=== PATIENT | female | born 1995 | race Caucasian/White ===

== ENCOUNTER 2017-03-02 06:29 | Inpatient (IN) | payer OTHER ==
[2017-03-02] MEDS: Lactated Ringers 1,000 ML IV SCH ×3 (07:30→09:13)
[2017-03-02] MEDS ORDERED: Carboprost Tromethamine 250 MCG/1 ML Amp IM PRN (08:23)
[2017-03-02] MEDS ORDERED: Methylergonovine 0.2 MG/1 ML Amp IM PRN (08:23)
[2017-03-02] MEDS ORDERED: Misoprostol 400 MCG (4 X 100 MCG TAB) RECTAL PRN (08:23)
[2017-03-02] MEDS ORDERED: Lactated Ringers 500 ML IV ONE (08:23)
[2017-03-02] MEDS ORDERED: Lidocaine 1% 30 ML SDV INJECT PRN ×2 (08:23→09:18)
[2017-03-02] MEDS ORDERED: Ondansetron 4 MG/2 ML SDV IV PRN (08:23)
[2017-03-02] MEDS ORDERED: Acetaminophen 325 MG Tab PO PRN ×2 (08:23→13:51)
[2017-03-02] MEDS ORDERED: Sodium Chloride 0.9% 10 ML Syringe FLUSH PRN ×2 (08:23→13:51)
[2017-03-02] MEDS ORDERED: Oxytocin/Normal Saline 30 UNIT/500 ML BAG IV SCH (08:30)
[2017-03-02] MEDS ORDERED: fentaNYL 100 MCG/2 ML SDV ONE (08:47)
--- NOTE | 2017-03-02 12:38 | PCM.PRNOTE ---
- Free Text/Narrative Note: PT is here with a term complaining of severe discomfort from contractions. Pt is requesting an intrathecal (IT) injection for pain control. Upon entering the room, verbal and written consent was obtained. All pertinent questions were asked and answered. Pt is aware of risks and benefits to procedure. Pt was placed into a sitting position. Landmarks were identified and the L3/L4 interspace was marked. Back was prepped with betadine x3 swabs. A sterile, fenistrated drape was applied. Excess betadine was removed. Using a 2% lidocaine solution, a local skin wheel was injected subq at the L3/L4 interspace. Using a 24 gauge pencan needle (4 inch), needle was advanced until pop felt and positive CSF in needle on first attempt. I injected 20 mcg of Fentanly, 10 mcg of sufenta, and 9 mg of 0.75% bupivicaine into the L3/L4 interspace. Needle was removed. Drape next. Left in sitting position for 2 minutes then placed onto a left lateral lying position. VSS remained stable. Pt was placed on supplemental O2 as once she became comfortable, her SpO2 dropped to 90%. BP normal. tracing normal. Pt denies itching, appreciates the pain control but does not like numb feet. Will continue to monitor for complications.
[2017-03-02] MEDS ORDERED: Simethicone 80 MG Tab.Chew PO PRN (13:51)
[2017-03-02] MEDS ORDERED: Benzocaine/Menthol 20%-0.5% Spray 56 GM Canister TOP PRN (13:51)
--- NOTE | 2017-03-02 15:08 | PCM.DEL ---
<YoelTimo - Last Filed: 03/02/17 15:02> L & D Note - General Info Date of Service: 03/02/17 Mother's Due Date: 02/28/17 - Delivery Note Labor: Spontaneous Delivery Outcome: Livebirth Infant Delivery Method: Spontaneous Vaginal Delivery-Single Infant Delivery Mode: Spontaneous Presentation: Left Occiput Anterior (CHELSIE) Nuchal Cord: None Prep: Povidone-Iodine (Betadine Anesthesia Type: Intrathecal Amniotic Fluid Description: Clear Laceration: Periurethral Placenta: Intact, Spontaneous Cord: 3 Vessels Estimated Blood Loss: 150 Vanderwagen: Bulb Syringe Provider: Perlita Salazar Score 1 min: 8 Score 5 min: 9 Second Stage Interventions: Reports: Second Nurse Assessed Progress of Descent, Second Nurse Reviewed Contraction Pattern, Second Nurse Reviewed Heart Tones, Encouragement Given, Laboring Down, Pushing Effectively Delivery Comments (Free Text/Narrative):: Eden presented to L and D at 6:40am and was 3cm with clear SROM FHR was reassuring in 140s Patient was roomed and interathecal was requested and given The patient rested and progressed to complete in just under 3 hrs Patient pushed well and decent progressed quickly Patient delivered at 12:07 Completed vaginal delivery with Timo Diallo, MS4 OA/CHELSIE, anterior/R hand prolapsed to chest with anterior shoulder delivery delayed Thick 3VC doubly clammed and cut, and baby placed on mom after Dr. Salazar performed a quick exam Thick 3VC noted and cord blood sample obtained Cord avulsed with gentle pressure/traction Placenta delivered without issue EBL 150 ml - General Info Date of Service: 03/02/17 Functional Status: Reports: Pain Controlled, Tolerating Diet, Ambulating, Urinating - Review of Systems General: Reports: No Symptoms HEENT: Reports: No Symptoms Pulmonary: Reports: No Symptoms Cardiovascular: Reports: No Symptoms Gastrointestinal: Reports: No Symptoms Genitourinary: Reports: Burning, Pain (due to laceration) Musculoskeletal: Reports: No Symptoms Skin: Reports: No Symptoms Neurological: Reports: No Symptoms Psychiatric: Reports: No Symptoms - Patient Data Vitals - Most Recent: Last Vital Signs Temp 99.1 F 03/02/17 07:40 Pulse 79 03/02/17 11:45 Resp 16 03/02/17 06:40 BP 117/64 03/02/17 11:45 Pulse Ox Weight - Most Recent: 188 lb I&O - Last 24 Hours: Intake & Output 03/02/17 03/02/17 03/02/17 06:59 14:59 22:59 Output Total 350 800 Balance -350 -800 Lab Results Last 24 Hours: Laboratory Results - last 24 hr 03/02/17 Range/Units 08:30 WBC 17.2 H (5.0-10.0) 10^3/uL RBC 3.84 L (4.2-5.4) 10^6/uL Hgb 10.9 L (12.0-16.0) g/dL Hct 33.7 L (37.0-47.0) % MCV 87.8 (80-100) fL MCH 28.4 (27.0-34.0) pg MCHC 32.3 L (33.0-35.0) g/dL Plt Count 224 (150-450) 10^3/uL Med Orders - Current: Current Medications Acetaminophen (Tylenol) 650 mg PO Q4H PRN PRN Reason: Pain (Mild 1-3) and fever Acetaminophen (Tylenol) 650 mg PO Q6H PRN PRN Reason: mild pain or fever Benzocaine/Menthol (Dermoplast Pain Relief [place]) 0 gm TOP Q4H PRN PRN Reason: Perineal comfort measures Last Admin: 03/02/17 14:44 Dose: 1 applic Carboprost Tromethamine (Hemabate Ds) 250 mcg IM ASDIRECTED PRN PRN Reason: HEMORRHAGE Docusate Sodium (Colace) 100 mg PO BID PRN PRN Reason: Constipation Lactated Ringer's (Ringers, Lactated) 1,000 mls @ 125 mls/hr IV ASDIRECTED PAULETTE Last Admin: 03/02/17 09:13 Dose: 125 mls/hr Oxytocin/Sodium Chloride (Pitocin In Ns 30 Unit/500 Ml) 30 unit in 500 mls @ 2 mls/hr IV TITRATE PAULETTE; 2 MUNITS/MIN PRN Reason: Protocol Last Titration: 03/02/17 14:00 Dose: 50 munits/min, 50 mls/hr Ibuprofen (Motrin) 800 mg PO Q8H PRN PRN Reason: Mild Pain or Fever Lidocaine HCl (Xylocaine-Mpf 1%) 30 ml INJECT ASDIRECTED PRN PRN Reason: Perineal Repair Methylergonovine Maleate (Methergine) 0.2 mg IM ASDIRECTED PRN PRN Reason: Hemorrhage Misoprostol (Cytotec) 800 mcg RECTAL ASDIRECTED PRN PRN Reason: Hemorrhage Ondansetron HCl (Zofran) 4 mg IV Q4H PRN PRN Reason: Nausea/Vomiting Last Admin: 03/02/17 08:39 Dose: 4 mg Prenat Multivit/[place]/Iron/Folic Ac ( Plus Iron) 1 each PO DAILY PAULETTE Simethicone (Simethicone) 80 mg PO Q4H PRN PRN Reason: Gas Sodium Chloride (Saline Flush) 10 ml FLUSH ASDIRECTED PRN PRN Reason: Keep Vein Open Sodium Chloride (Saline Flush) 10 ml FLUSH ASDIRECTED PRN PRN Reason: Keep Vein Open Discontinued Medications Fentanyl (Sublimaze) Confirm Administered Dose 100 mcg .ROUTE .STK-MED ONE Stop: 03/02/17 08:48 Last Admin: 03/02/17 11:11 Dose: Not Given Lactated Ringer's (Ringers, Lactated) 500 mls @ 999 mls/hr IV .BOLUS ONE Stop: 03/02/17 08:53 Last Admin: 03/02/17 11:10 Dose: Not Given Lidocaine HCl (Xylocaine-Mpf 1%) 10 ml INJECT ASDIRECTED PRN PRN Reason: Perineal Repair Sufentanil Citrate (Sufenta) Confirm Administered Dose 50 mcg .ROUTE .STK-MED ONE Stop: 03/02/17 08:48 Last Admin: 03/02/17 11:11 Dose: Not Given - Exam General: Alert, Oriented HEENT: Pupils Reactive, Mucous Membr. Moist/[place] Neck: Trachea Midline Lungs: Normal Respiratory Effort Cardiovascular: Regular Rate GI/Abdominal Exam: Soft, No Distention (Female) Exam: Enlarged Uterus Back Exam: Full Range of Motion Extremities: Normal Inspection, Non-Tender Skin: Warm, Dry, Intact Neurological: No New Focal Deficit Psy/Mental Status: Alert, Normal Affect, Normal Mood - Problem List & Annotations (1) SNOMED Code(s): 10860465 Code(s): Z34.90 - ENCNTR FOR SUPRVSN OF NORMAL , UNSP, UNSP TRIMESTER Status: Acute Current Visit: Yes QualifierTitle: Weeks of gestation: 40 weeks Qualified Code(s): Z3A.40 - 40 weeks gestation of (2) Vaginal delivery SNOMED Code(s): 605874542 Code(s): O80 - ENCOUNTER FOR FULL-TERM UNCOMPLICATED DELIVERY Status: Acute Current Visit: Yes (3) Type O blood, Rh positive SNOMED Code(s): 014124101 Code(s): Z67.40 - TYPE O BLOOD, RH POSITIVE Status: Acute Current Visit: Yes (4) Rubella non-immune status, antepartum SNOMED Code(s): 127582543 Code(s): O99.89 - OTH DISEASES AND CONDITIONS COMPL PREG/CHLDBRTH; Z28.3 - UNDERIMMUNIZATION STATUS Status: Acute Current Visit: Yes (5) Immune to varicella SNOMED Code(s): 779281447 Code(s): Z78.9 - OTHER SPECIFIED HEALTH STATUS Status: Acute Current Visit: Yes - Problem List Review Problem List Initiated/Reviewed/Updated: Yes - My Orders Last 24 Hours: My Active Orders 03/02/17 08:23 Patient Status [ADT] Routine Communication Order [RC] ASDIRECTED Notify Provider Vital Signs OB [RC] ASDIRECTED Notify Provider [RC] PRN Up ad Bharti [RC] ASDIRECTED Acetaminophen [Tylenol] 650 mg PO Q4H PRN Carboprost Tromethamine [Hemabate DS] 250 mcg IM ASDIRECTED PRN Methylergonovine [Methergine] 0.2 mg IM ASDIRECTED PRN Misoprostol [Cytotec] 800 mcg RECTAL ASDIRECTED PRN Ondansetron [Zofran] 4 mg IV Q4H PRN Sodium Chloride 0.9% [Saline Flush] 10 ml FLUSH ASDIRECTED PRN Saline Lock Insert [OM.PC] Routine Resuscitation Status Routine 03/02/17 08:26 Consult to Business Broker [CONS] Routine 03/02/17 08:30 Lactated Ringers [Ringers, Lactated] 1,000 ml IV ASDIRECTED Oxytocin/Normal Saline [Pitocin in NS 30 UNIT/500 ML] 30 unit in 500 ml IV TITRATE 03/02/17 09:18 Lidocaine 1% [Xylocaine-MPF 1%] 30 ml INJECT ASDIRECTED PRN 03/02/17 13:51 Acetaminophen [Tylenol] 650 mg PO Q6H PRN Benzocaine/Menthol [Dermoplast Pain Relief [place]] See Dose Instructions TOP Q4H PRN Docusate Sodium [Colace] 100 mg PO BID PRN Ibuprofen [Motrin] 800 mg PO Q8H PRN Simethicone 80 mg PO Q4H PRN Sodium Chloride 0.9% [Saline Flush] 10 ml FLUSH ASDIRECTED PRN 03/02/17 14:00 Notify Provider Vital Signs OB [RC] ASDIRECTED Up ad Bharti [RC] ASDIRECTED Assess Lochia [WOMSER] Per Unit Routine Assess Uterine Involution [WOMSER] Per Unit Routine Breast Pump [WOMSER] Per Unit Routine Ice Therapy [OM.PC] Per Unit Routine Perineal Care [OM.PC] Per Unit Routine Saline Lock Insert [OM.PC] Urgent Sitz Bath [OM.PC] Per Unit Routine 03/02/17 14:01 Vital Signs [RC] PFP 03/02/17 Lunch Clear Liquid Diet [DIET] 03/03/17 05:11 CBC W/O DIFF,HEMOGRAM [HEME] AM 03/03/17 09:00 Vit with Ca/FA/Iron [ Plus Iron] 1 each PO DAILY - Assessment Assessment:: 21 yo female who is G1 now P1001 40wk2d per 19wk on LMP and verified by U/S delivery --- precipitous on 03/02/18 @ 12:07 SGA male 8 & 9 7lb--3180g Blood type 0+ Rubella NON-immune GBS negative Denies drug, alcohol and tobacco usage gestational anemia -- 10.9 Hgb - Plan Plan:: routine and post-op care. check CBC in a.m. continue to monitor BP, etc. for pre-eclampsia All questions answered and family updated. <Perlita Salazar - Last Filed: 03/03/17 07:35> - Patient Data Vitals - Most Recent: Last Vital Signs Temp 98.2 F 03/02/17 20:00 Pulse 75 03/02/17 20:00 Resp 16 03/02/17 13:50 BP 112/68 03/02/17 20:00 Pulse Ox I&O - Last 24 Hours: Intake & Output 03/02/17 03/03/17 03/03/17 22:59 06:59 14:59 Intake Total 3500 Output Total 800 Balance 2700 Lab Results Last 24 Hours: Laboratory Results - last 24 hr 03/02/17 03/03/17 Range/Units 08:30 06:35 WBC 17.2 H 15.3 H (5.0-10.0) 10^3/uL RBC 3.84 L 3.44 L (4.2-5.4) 10^6/uL Hgb 10.9 L 9.9 L (12.0-16.0) g/dL Hct 33.7 L 31.0 L (37.0-47.0) % MCV 87.8 90.1 (80-100) fL MCH 28.4 28.8 (27.0-34.0) pg MCHC 32.3 L 31.9 L (33.0-35.0) g/dL Plt Count 224 191 (150-450) 10^3/uL Med Orders - Current: Current Medications Acetaminophen (Tylenol) 650 mg PO Q4H PRN PRN Reason: Pain (Mild 1-3) and fever Acetaminophen (Tylenol) 650 mg PO Q6H PRN PRN Reason: mild pain or fever Benzocaine/Menthol (Dermoplast Pain Relief [place]) 0 gm TOP Q4H PRN PRN Reason: Perineal comfort measures Last Admin: 03/02/17 14:44 Dose: 1 applic Carboprost Tromethamine (Hemabate Ds) 250 mcg IM ASDIRECTED PRN PRN Reason: HEMORRHAGE Docusate Sodium (Colace) 100 mg PO BID PRN PRN Reason: Constipation Lactated Ringer's (Ringers, Lactated) 1,000 mls @ 125 mls/hr IV ASDIRECTED PAULETTE Last Admin: 03/02/17 09:13 Dose: 125 mls/hr Oxytocin/Sodium Chloride (Pitocin In Ns 30 Unit/500 Ml) 30 unit in 500 mls @ 2 mls/hr IV TITRATE PAULETTE; 2 MUNITS/MIN PRN Reason: Protocol Last Titration: 03/02/17 15:27 Dose: 0 munits/min, 0 mls/hr Ibuprofen (Motrin) 800 mg PO Q8H PRN PRN Reason: Mild Pain or Fever Last Admin: 03/03/17 04:09 Dose: 800 mg Lidocaine HCl (Xylocaine-Mpf 1%) 30 ml INJECT ASDIRECTED PRN PRN Reason: Perineal Repair Methylergonovine Maleate (Methergine) 0.2 mg IM ASDIRECTED PRN PRN Reason: Hemorrhage Misoprostol (Cytotec) 800 mcg RECTAL ASDIRECTED PRN PRN Reason: Hemorrhage Ondansetron HCl (Zofran) 4 mg IV Q4H PRN PRN Reason: Nausea/Vomiting Last Admin: 03/02/17 08:39 Dose: 4 mg Prenat Multivit/[place]/Iron/Folic Ac ( Plus Iron) 1 each PO DAILY PAULETTE Simethicone (Simethicone) 80 mg PO Q4H PRN PRN Reason: Gas Sodium Chloride (Saline Flush) 10 ml FLUSH ASDIRECTED PRN PRN Reason: Keep Vein Open Sodium Chloride (Saline Flush) 10 ml FLUSH ASDIRECTED PRN PRN Reason: Keep Vein Open Discontinued Medications Fentanyl (Sublimaze) Confirm Administered Dose 100 mcg .ROUTE .Fididel-Cenzic ONE Stop: 03/02/17 08:48 Last Admin: 03/02/17 11:11 Dose: Not Given Lactated Ringer's (Ringers, Lactated) 500 mls @ 999 mls/hr IV .BOLUS ONE Stop: 03/02/17 08:53 Last Admin: 03/02/17 11:10 Dose: Not Given Lidocaine HCl (Xylocaine-Mpf 1%) 10 ml INJECT ASDIRECTED PRN PRN Reason: Perineal Repair Sufentanil Citrate (Sufenta) Confirm Administered Dose 50 mcg .ROUTE .STK-MED ONE Stop: 03/02/17 08:48 Last Admin: 03/02/17 11:11 Dose: Not Given - Problem List Review Problem List Initiated/Reviewed/Updated: Yes - Plan Plan:: REVIEWED ABOVE NOTE. WAS PRESENT AT DELIVERY AND AGREE WITH DOCUMENTATION. PERLITA SALAZAR MD 03-03-17
--- NOTE | 2017-03-02 17:18 | PCM.LDHP ---
<Timo Diallo - Last Filed: 03/02/17 17:13> L&D History of Present Illness - General Date of Service: 03/02/17 Admit Problem/Dx: Patient Status Order with Admit Dx/Problem 03/02/17 08:23 Patient Status [ADT] Routine Admission Diagnosis/Problem Admission Diagnosis/Problem Labor established Source of Information: Patient History Limitations: Reports: No Limitations - History of Present Illness Location, : Reports: Uterus Quality: Reports: Ache Severity: Mild - Related Data Allergies/Adverse Reactions: Allergies Allergy/AdvReac Type Severity Reaction Status Date / Time No Known Allergies Allergy Verified 03/03/17 07:37 Home Medications: Home Meds Ascorbic Acid [Vitamin C] 1 tab PO DAILY 02/28/17 [History] Ferrous Sulfate 325 mg PO BIDMEALS 02/28/17 [History] Vit with Ca/FA/Iron [ Plus Iron] 1 tab PO DAILY 02/28/17 [ History] Past Medical History HEENT History: Reports: None Cardiovascular History: Reports: None Respiratory History: Reports: None Gastrointestinal History: Reports: None Genitourinary History: Reports: None RESIDENT CARE MANAGER RN History: Reports: : 1 Para: 0 LMP (Approximate): Other OB/BYN History: GBS neg, rubella immune, O pos blood type Musculoskeletal History: Reports: None Neurological History: Reports: None Psychiatric History: Reports: None Endocrine/Metabolic History: Reports: None Hematologic History: Reports: Anemia Immunologic History: Reports: None Oncologic (Cancer) History: Reports: None Dermatologic History: Reports: None - Infectious Disease History Infectious Disease History: Reports: None - Past Surgical History Head Surgeries/Procedures: Reports: None Social & Family History - Family History Family Medical History: Noncontributory Cardiac: Reports: Arrhythmia, Other (See Below) (Heart Disease) Respiratory: Reports: COPD Neurological: Reports: CVA - Tobacco Use Smoking Status *Q: Never Smoker - Caffeine Use Caffeine Use: Reports: Soda - Alcohol Use Alcohol Use History: No - Recreational Drug Use Recreational Drug Use: No - Living Situation & Occupation Living situation: Reports: Occupation: Unemployed Social History Comment: Living in [facility] with (Miguel Nayak) and dog. H&P Review of Systems - Review of Systems: General: Reports: No Symptoms HEENT: Reports: No Symptoms Pulmonary: Reports: No Symptoms Cardiovascular: Reports: No Symptoms Gastrointestinal: Reports: No Symptoms Musculoskeletal: Reports: No Symptoms Skin: Reports: No Symptoms Neurological: Reports: No Symptoms Hematologic/Lymphatic: Reports: No Symptoms, Anemia L&D Exam - Exam Exam: See Below - Vital Signs Vital Signs: Last Vital Signs Temp 98.6 F 03/02/17 13:50 Pulse 65 03/02/17 13:50 Resp 16 03/02/17 13:50 BP 117/55 L 03/02/17 13:50 Pulse Ox Weight: 188 lb - OB Specific Contraction Duration (sec): 70-120 Contraction Frequency (min): 2-2.5 Contraction Intensity: Strong Movement: Active Heart Tones: Present Heart Tones per Min: 140 Heart Rate (FHR) Variability: Moderate (6-25 bmp) Presentation: Left Occiput Anterior (CHELSIE) - Exam General: Alert, Oriented HEENT: Conjunctiva Clear, Hearing Intact, Pupils Reactive Neck: Trachea Midline Lungs: Clear to Auscultation, Normal Respiratory Effort Cardiovascular: Regular Rate, Regular Rhythm GI/Abdominal Exam: Other () Genitourinary: Normal external exam Back Exam: Full Range of Motion Extremities: Normal Inspection, Normal Range of Motion, No Pedal Edema Skin: Warm, Dry, Intact Neurological: Cranial Nerves Intact Psychiatric: Alert, Normal Affect, Normal Mood - Patient Data Lab Results Last 24 hrs: Laboratory Results - last 24 hr 03/02/17 Range/Units 08:30 WBC 17.2 H (5.0-10.0) 10^3/uL RBC 3.84 L (4.2-5.4) 10^6/uL Hgb 10.9 L (12.0-16.0) g/dL Hct 33.7 L (37.0-47.0) % MCV 87.8 (80-100) fL MCH 28.4 (27.0-34.0) pg MCHC 32.3 L (33.0-35.0) g/dL Plt Count 224 (150-450) 10^3/uL Result Diagrams: 03/02/17 08:30 - Problem List (1) SNOMED Code(s): 49874121 ICD Code: Z34.90 - ENCNTR FOR SUPRVSN OF NORMAL , UNSP, UNSP TRIMESTER Status: Acute Current Visit: Yes QualifierTitle: Weeks of gestation: 40 weeks Qualified Code(s): Z3A.40 - 40 weeks gestation of (2) Vaginal delivery SNOMED Code(s): 311333977 ICD Code: O80 - ENCOUNTER FOR FULL-TERM UNCOMPLICATED DELIVERY Status: Acute Current Visit: Yes (3) Type O blood, Rh positive SNOMED Code(s): 058950755 ICD Code: Z67.40 - TYPE O BLOOD, RH POSITIVE Status: Acute Current Visit : Yes (4) Rubella non-immune status, antepartum SNOMED Code(s): 391037537 ICD Code: O99.89 - OTH DISEASES AND CONDITIONS COMPL PREG/CHLDBRTH; Z28.3 - UNDERIMMUNIZATION STATUS Status: Acute Current Visit: Yes (5) Immune to varicella SNOMED Code(s): 703356913 ICD Code: Z78.9 - OTHER SPECIFIED HEALTH STATUS Status: Acute Current Visit: Yes Problem List Initiated/Reviewed/Updated: Yes Orders Last 24hrs: Active Orders 24 hr Category Date Time Status Patient Status [ADT] Routine ADT 03/02/17 08:23 Active Communication Order [RC] ASDIRECTED Care 03/02/17 08:23 Active Notify Provider Vital Signs OB [RC] ASDIRECTED Care 03/02/17 08:23 Active Notify Provider Vital Signs OB [RC] ASDIRECTED Care 03/02/17 14:00 Active Notify Provider [RC] PRN Care 03/02/17 08:23 Active Up ad Bharti [RC] ASDIRECTED Care 03/02/17 08:23 Active Up ad Bharti [RC] ASDIRECTED Care 03/02/17 14:00 Active Vital Signs [RC] PFP Care 03/02/17 14:01 Active Consult to Cloth Shrinking Machine Operator [CONS] Routine Cons 03/02/17 08:26 Active Clear Liquid Diet [DIET] Diet 03/02/17 Lunch Active CBC W/O DIFF,HEMOGRAM [HEME] AM Lab 03/03/17 05:11 Ordered Acetaminophen [Tylenol] Med 03/02/17 08:23 Active 650 mg PO Q4H PRN Acetaminophen [Tylenol] Med 03/02/17 13:51 Active 650 mg PO Q6H PRN Benzocaine/Menthol [Dermoplast Pain Relief [place]] Med 03/02/17 13:51 Active See Dose Instructions TOP Q4H PRN Carboprost Tromethamine [Hemabate DS] Med 03/02/17 08:23 Active 250 mcg IM ASDIRECTED PRN Docusate Sodium [Colace] Med 03/02/17 13:51 Active 100 mg PO BID PRN Ibuprofen [Motrin] Med 03/02/17 13:51 Active 800 mg PO Q8H PRN Lactated Ringers [Ringers, Lactated] 1,000 ml Med 03/02/17 08:30 Active IV ASDIRECTED Lidocaine 1% [Xylocaine-MPF 1%] Med 03/02/17 09:18 Active 30 ml INJECT ASDIRECTED PRN Methylergonovine [Methergine] Med 03/02/17 08:23 Active 0.2 mg IM ASDIRECTED PRN Misoprostol [Cytotec] Med 03/02/17 08:23 Active 800 mcg RECTAL ASDIRECTED PRN Ondansetron [Zofran] Med 03/02/17 08:23 Active 4 mg IV Q4H PRN Oxytocin/Normal Saline [Pitocin in NS 30 UNIT/500 ML] Med 03/02/17 08:30 Active 30 unit in 500 ml IV TITRATE Vit with Ca/FA/Iron [ Plus Iron] Med 03/03/17 09:00 Active 1 each PO DAILY Simethicone Med 03/02/17 13:51 Active 80 mg PO Q4H PRN Sodium Chloride 0.9% [Saline Flush] Med 03/02/17 08:23 Active 10 ml FLUSH ASDIRECTED PRN Sodium Chloride 0.9% [Saline Flush] Med 03/02/17 13:51 Active 10 ml FLUSH ASDIRECTED PRN Assess Lochia [WOMSER] Per Unit Routine Oth 03/02/17 14:00 Ordered Assess Uterine Involution [WOMSER] Per Unit Routine Oth 03/02/17 14:00 Ordered Breast Pump [WOMSER] Per Unit Routine Oth 03/02/17 14:00 Ordered Ice Therapy [OM.PC] Per Unit Routine Oth 03/02/17 14:00 Ordered Perineal Care [OM.PC] Per Unit Routine Oth 03/02/17 14:00 Ordered Saline Lock Insert [OM.PC] Routine Oth 03/02/17 08:23 Ordered Saline Lock Insert [OM.PC] Urgent Oth 03/02/17 14:00 Ordered Sitz Bath [OM.PC] Per Unit Routine Oth 03/02/17 14:00 Ordered Resuscitation Status Routine Resus Stat 03/02/17 08:23 Ordered Medication Orders Acetaminophen (Tylenol) 650 mg PO Q4H PRN PRN Reason: Pain (Mild 1-3) and fever Acetaminophen (Tylenol) 650 mg PO Q6H PRN PRN Reason: mild pain or fever Benzocaine/Menthol (Dermoplast Pain Relief [place]) 0 gm TOP Q4H PRN PRN Reason: Perineal comfort measures Last Admin: 03/02/17 14:44 Dose: 1 applic Carboprost Tromethamine (Hemabate Ds) 250 mcg IM ASDIRECTED PRN PRN Reason: HEMORRHAGE Docusate Sodium (Colace) 100 mg PO BID PRN PRN Reason: Constipation Lactated Ringer's (Ringers, Lactated) 1,000 mls @ 125 mls/hr IV ASDIRECTED PAULETTE Last Admin: 03/02/17 09:13 Dose: 125 mls/hr Infusion: 03/02/17 09:13 Dose: 125 mls/hr Admin: 03/02/17 08:41 Dose: 125 mls/hr Infusion: 03/02/17 08:41 Dose: 125 mls/hr Admin: 03/02/17 07:30 Dose: 125 mls/hr Oxytocin/Sodium Chloride (Pitocin In Ns 30 Unit/500 Ml) 30 unit in 500 mls @ 2 mls/hr IV TITRATE PAULETTE; 2 MUNITS/MIN PRN Reason: Protocol Last Titration: 03/02/17 15:27 Dose: 0 munits/min, 0 mls/hr Titration: 03/02/17 14:00 Dose: 50 munits/min, 50 mls/hr Titration: 03/02/17 13:09 Dose: 125 munits/min, 125 mls/hr Titration: 03/02/17 12:28 Dose: 250 munits/min, 250 mls/hr Admin: 03/02/17 12:13 Dose: 500 munits/min, 500 mls/hr Ibuprofen (Motrin) 800 mg PO Q8H PRN PRN Reason: Mild Pain or Fever Lidocaine HCl (Xylocaine-Mpf 1%) 30 ml INJECT ASDIRECTED PRN PRN Reason: Perineal Repair Methylergonovine Maleate (Methergine) 0.2 mg IM ASDIRECTED PRN PRN Reason: Hemorrhage Misoprostol (Cytotec) 800 mcg RECTAL ASDIRECTED PRN PRN Reason: Hemorrhage Ondansetron HCl (Zofran) 4 mg IV Q4H PRN PRN Reason: Nausea/Vomiting Last Admin: 03/02/17 08:39 Dose: 4 mg Prenat Multivit/[place]/Iron/Folic Ac ( Plus Iron) 1 each PO DAILY PAULETTE Simethicone (Simethicone) 80 mg PO Q4H PRN PRN Reason: Gas Sodium Chloride (Saline Flush) 10 ml FLUSH ASDIRECTED PRN PRN Reason: Keep Vein Open Sodium Chloride (Saline Flush) 10 ml FLUSH ASDIRECTED PRN PRN Reason: Keep Vein Open Assessment/Plan Comment:: Assessment: 40 week gestation Advanced cervical dilation Blood type O+ GBS negative Rubella NON-immune Anemia, mild Plan: Admit to Labor and delivery as discussed. Will use pitocin augmentation if needed. Anticipate vaginal delivery later today. All questions answered. Further management pending her course in labor. <Perlita Navarrete M - Last Filed: 03/03/17 07:37> L&D History of Present Illness - General Date of Service: 03/02/17 Admit Problem/Dx: Patient Status Order with Admit Dx/Problem 03/02/17 08:23 Patient Status [ADT] Routine Admission Diagnosis/Problem Admission Diagnosis/Problem Labor established H&P Review of Systems - Review of Systems: Review Of Systems: See Below L&D Exam - Exam Exam: See Below - Vital Signs Vital Signs: Last Vital Signs Temp 98.2 F 03/02/17 20:00 Pulse 75 03/02/17 20:00 Resp 16 03/02/17 13:50 BP 112/68 03/02/17 20:00 Pulse Ox - Patient Data Lab Results Last 24 hrs: Laboratory Results - last 24 hr 03/02/17 03/03/17 Range/Units 08:30 06:35 WBC 17.2 H 15.3 H (5.0-10.0) 10^3/uL RBC 3.84 L 3.44 L (4.2-5.4) 10^6/uL Hgb 10.9 L 9.9 L (12.0-16.0) g/dL Hct 33.7 L 31.0 L (37.0-47.0) % MCV 87.8 90.1 (80-100) fL MCH 28.4 28.8 (27.0-34.0) pg MCHC 32.3 L 31.9 L (33.0-35.0) g/dL Plt Count 224 191 (150-450) 10^3/uL Result Diagrams: 03/03/17 06:35 Orders Last 24hrs: Active Orders 24 hr Category Date Time Status Patient Status [ADT] Routine ADT 03/02/17 08:23 Active Notify Provider Vital Signs OB [RC] ASDIRECTED Care 03/02/17 08:23 Active Notify Provider Vital Signs OB [RC] ASDIRECTED Care 03/02/17 14:00 Active Up ad Bharti [RC] ASDIRECTED Care 03/02/17 08:23 Active Up ad Bharti [RC] ASDIRECTED Care 03/02/17 14:00 Active Vital Signs [RC] Care 03/02/17 14:01 Active Consult to Cloth Shrinking Machine Operator [CONS] Routine Cons 03/02/17 08:26 Active Regular Diet [DIET] Diet 03/03/17 Breakfast Active Acetaminophen [Tylenol] Med 03/02/17 08:23 Active 650 mg PO Q4H PRN Acetaminophen [Tylenol] Med 03/02/17 13:51 Active 650 mg PO Q6H PRN Benzocaine/Menthol [Dermoplast Pain Relief [place]] Med 03/02/17 13:51 Active See Dose Instructions TOP Q4H PRN Carboprost Tromethamine [Hemabate DS] Med 03/02/17 08:23 Active 250 mcg IM ASDIRECTED PRN Docusate Sodium [Colace] Med 03/02/17 13:51 Active 100 mg PO BID PRN Ibuprofen [Motrin] Med 03/02/17 13:51 Active 800 mg PO Q8H PRN Lactated Ringers [Ringers, Lactated] 1,000 ml Med 03/02/17 08:30 Active IV ASDIRECTED Lidocaine 1% [Xylocaine-MPF 1%] Med 03/02/17 09:18 Active 30 ml INJECT ASDIRECTED PRN Methylergonovine [Methergine] Med 03/02/17 08:23 Active 0.2 mg IM ASDIRECTED PRN Misoprostol [Cytotec] Med 03/02/17 08:23 Active 800 mcg RECTAL ASDIRECTED PRN Ondansetron [Zofran] Med 03/02/17 08:23 Active 4 mg IV Q4H PRN Oxytocin/Normal Saline [Pitocin in NS 30 UNIT/500 ML] Med 03/02/17 08:30 Active 30 unit in 500 ml IV TITRATE Vit with Ca/FA/Iron [ Plus Iron] Med 03/03/17 09:00 Active 1 each PO DAILY Simethicone Med 03/02/17 13:51 Active 80 mg PO Q4H PRN Sodium Chloride 0.9% [Saline Flush] Med 03/02/17 08:23 Active 10 ml FLUSH ASDIRECTED PRN Sodium Chloride 0.9% [Saline Flush] Med 03/02/17 13:51 Active 10 ml FLUSH ASDIRECTED PRN Assess Lochia [WOMSER] Per Unit Routine Oth 03/02/17 14:00 Ordered Assess Uterine Involution [WOMSER] Per Unit Routine Oth 03/02/17 14:00 Ordered Breast Pump [WOMSER] Per Unit Routine Oth 03/02/17 14:00 Ordered Ice Therapy [OM.PC] Per Unit Routine Oth 03/02/17 14:00 Ordered Perineal Care [OM.PC] Per Unit Routine Oth 03/02/17 14:00 Ordered Saline Lock Insert [OM.PC] Routine Oth 03/02/17 08:23 Ordered Saline Lock Insert [OM.PC] Urgent Oth 03/02/17 14:00 Ordered Sitz Bath [OM.PC] Per Unit Routine Oth 03/02/17 14:00 Ordered Resuscitation Status Routine Resus Stat 03/02/17 08:23 Ordered Medication Orders Acetaminophen (Tylenol) 650 mg PO Q4H PRN PRN Reason: Pain (Mild 1-3) and fever Acetaminophen (Tylenol) 650 mg PO Q6H PRN PRN Reason: mild pain or fever Benzocaine/Menthol (Dermoplast Pain Relief [place]) 0 gm TOP Q4H PRN PRN Reason: Perineal comfort measures Last Admin: 03/02/17 14:44 Dose: 1 applic Carboprost Tromethamine (Hemabate Ds) 250 mcg IM ASDIRECTED PRN PRN Reason: HEMORRHAGE Docusate Sodium (Colace) 100 mg PO BID PRN PRN Reason: Constipation Lactated Ringer's (Ringers, Lactated) 1,000 mls @ 125 mls/hr IV ASDIRECTED PAULETTE Last Admin: 03/02/17 09:13 Dose: 125 mls/hr Infusion: 03/02/17 09:13 Dose: 125 mls/hr Admin: 03/02/17 08:41 Dose: 125 mls/hr Infusion: 03/02/17 08:41 Dose: 125 mls/hr Admin: 03/02/17 07:30 Dose: 125 mls/hr Oxytocin/Sodium Chloride (Pitocin In Ns 30 Unit/500 Ml) 30 unit in 500 mls @ 2 mls/hr IV TITRATE PAULETTE; 2 MUNITS/MIN PRN Reason: Protocol Last Titration: 03/02/17 15:27 Dose: 0 munits/min, 0 mls/hr Titration: 03/02/17 14:00 Dose: 50 munits/min, 50 mls/hr Titration: 03/02/17 13:09 Dose: 125 munits/min, 125 mls/hr Titration: 03/02/17 12:28 Dose: 250 munits/min, 250 mls/hr Admin: 03/02/17 12:13 Dose: 500 munits/min, 500 mls/hr Ibuprofen (Motrin) 800 mg PO Q8H PRN PRN Reason: Mild Pain or Fever Last Admin: 03/03/17 04:09 Dose: 800 mg Lidocaine HCl (Xylocaine-Mpf 1%) 30 ml INJECT ASDIRECTED PRN PRN Reason: Perineal Repair Methylergonovine Maleate (Methergine) 0.2 mg IM ASDIRECTED PRN PRN Reason: Hemorrhage Misoprostol (Cytotec) 800 mcg RECTAL ASDIRECTED PRN PRN Reason: Hemorrhage Ondansetron HCl (Zofran) 4 mg IV Q4H PRN PRN Reason: Nausea/Vomiting Last Admin: 03/02/17 08:39 Dose: 4 mg Prenat Multivit/[place]/Iron/Folic Ac ( Plus Iron) 1 each PO DAILY PAULETTE Simethicone (Simethicone) 80 mg PO Q4H PRN PRN Reason: Gas Sodium Chloride (Saline Flush) 10 ml FLUSH ASDIRECTED PRN PRN Reason: Keep Vein Open Sodium Chloride (Saline Flush) 10 ml FLUSH ASDIRECTED PRN PRN Reason: Keep Vein Open
[2017-03-03] MEDS: Ibuprofen 800 MG Tab PO PRN ×3 (04:09→19:19)
--- NOTE | 2017-03-03 07:54 | PCM.SN ---
- Free Text/Narrative Note: DOS: 03-03-17 PPD#1 Doing well. Nursing. cramping quite a bit, yung with nursing. flow decreasing. eating, voiding, ambulating well. no concerns. VSS, afebrile. fundus firm. hgb 9.9, PLT 191, WBC 15.3 admit 10.9, PLT 224, WBC 17.2 Impression/Plan: continue current cares. x ray consultant to follow. Likely home tomorrow. b
[2017-03-03] MEDS: Docusate Sodium 100 MG Cap PO PRN ×2 (09:15→19:19)
[2017-03-03] MEDS: Prenatal Multivitamin with Calcium/Folic Acid/Iron Tab PO SCH (09:15)
[2017-03-04] MEDS: Ibuprofen 800 MG Tab PO PRN (04:07)
[2017-03-04] MEDS: Docusate Sodium 100 MG Cap PO PRN (08:40)
[2017-03-04] MEDS: Prenatal Multivitamin with Calcium/Folic Acid/Iron Tab PO SCH (08:40)
--- NOTE | 2017-03-04 10:07 | PCM.DCSUM1 ---
Discharge Summary - Discharge Data Discharge Date: 03/04/17 Discharge Disposition: Home, Self-Care 01 Condition: Good - Patient Summary/Data Consults: Consultations 03/02/17 08:26 Consult to Management Trainee [employer] [CONS] Routine - Discharge Plan Home Medications: Home Meds Ascorbic Acid [Vitamin C] 1 tab PO DAILY 02/28/17 [History] Ferrous Sulfate 325 mg PO BIDMEALS 02/28/17 [History] Vit with Ca/FA/Iron [ Plus Iron] 1 tab PO DAILY 02/28/17 [ History] Patient Handouts: Home Care Instructions for Mom, Iron Deficiency Anemia, Adult , Care of a Perineal Tear - Patient Data Vitals - Most Recent: Last Vital Signs Temp 98.2 F 03/03/17 19:20 Pulse 90 03/03/17 19:20 Resp 16 03/03/17 19:20 BP 116/68 03/03/17 19:20 Pulse Ox 93 L 03/03/17 19:20 Weight - Most Recent: 188 lb Med Orders - Current: Current Medications Acetaminophen (Tylenol) 650 mg PO Q4H PRN PRN Reason: Pain (Mild 1-3) and fever Last Admin: 03/04/17 04:07 Dose: 650 mg Acetaminophen (Tylenol) 650 mg PO Q6H PRN PRN Reason: mild pain or fever Last Admin: 03/03/17 22:00 Dose: 650 mg Benzocaine/Menthol (Dermoplast Pain Relief [place]) 0 gm TOP Q4H PRN PRN Reason: Perineal comfort measures Last Admin: 03/02/17 14:44 Dose: 1 applic Carboprost Tromethamine (Hemabate Ds) 250 mcg IM ASDIRECTED PRN PRN Reason: HEMORRHAGE Docusate Sodium (Colace) 100 mg PO BID PRN PRN Reason: Constipation Last Admin: 03/04/17 08:40 Dose: 100 mg Lactated Ringer's (Ringers, Lactated) 1,000 mls @ 125 mls/hr IV ASDIRECTED PAULETTE Last Admin: 03/02/17 09:13 Dose: 125 mls/hr Oxytocin/Sodium Chloride (Pitocin In Ns 30 Unit/500 Ml) 30 unit in 500 mls @ 2 mls/hr IV TITRATE PAULETTE; 2 MUNITS/MIN PRN Reason: Protocol Last Titration: 03/02/17 15:27 Dose: 0 munits/min, 0 mls/hr Ibuprofen (Motrin) 800 mg PO Q8H PRN PRN Reason: Mild Pain or Fever Last Admin: 03/04/17 04:07 Dose: 800 mg Lidocaine HCl (Xylocaine-Mpf 1%) 30 ml INJECT ASDIRECTED PRN PRN Reason: Perineal Repair Methylergonovine Maleate (Methergine) 0.2 mg IM ASDIRECTED PRN PRN Reason: Hemorrhage Misoprostol (Cytotec) 800 mcg RECTAL ASDIRECTED PRN PRN Reason: Hemorrhage Ondansetron HCl (Zofran) 4 mg IV Q4H PRN PRN Reason: Nausea/Vomiting Last Admin: 03/02/17 08:39 Dose: 4 mg Prenat Multivit/[place]/Iron/Folic Ac ( Plus Iron) 1 each PO DAILY PAULETTE Last Admin: 03/04/17 08:40 Dose: 1 each Simethicone (Simethicone) 80 mg PO Q4H PRN PRN Reason: Gas Sodium Chloride (Saline Flush) 10 ml FLUSH ASDIRECTED PRN PRN Reason: Keep Vein Open Sodium Chloride (Saline Flush) 10 ml FLUSH ASDIRECTED PRN PRN Reason: Keep Vein Open Discontinued Medications Fentanyl (Sublimaze) Confirm Administered Dose 100 mcg .ROUTE .[place] ONE Stop: 03/02/17 08:48 Last Admin: 03/02/17 11:11 Dose: Not Given Lactated Ringer's (Ringers, Lactated) 500 mls @ 999 mls/hr IV .BOLUS ONE Stop: 03/02/17 08:53 Last Admin: 03/02/17 11:10 Dose: Not Given Lidocaine HCl (Xylocaine-Mpf 1%) 10 ml INJECT ASDIRECTED PRN PRN Reason: Perineal Repair Sufentanil Citrate (Sufenta) Confirm Administered Dose 50 mcg .ROUTE .Flurry-MED ONE Stop: 03/02/17 08:48 Last Admin: 03/02/17 11:11 Dose: Not Given *Q Meaningful Use (DIS) - VTE *Q VTE Criteria *Q: - Stroke *Q Stroke Criteria *Q: - AMI *Q AMI Criteria *Q:
[2017-03-04] MEDS ORDERED: fentaNYL 100 MCG/2 ML SDV ITHECAL ONE (10:59)
[2017-03-04 11:13] VITALS: BP 122/69
== END 2017-03-04 11:00 | disposition home or self-care (01) | DRG 775 ==
LOC: DL.OBCHECK 06:29 → UNDOADMOB 07:36 → DL.OB 07:36 → INTOOBSV 12:07 → OBSVTOIN 12:07 → DL.MS 03-03 21:40
PROVIDERS: ADMIT Family Medicine; ATTEND Family Medicine
PROC: 10E0XZZ Delivery of Products of Conception, External Approach (ICD-10-PCS; principal; 2017-03-03)
PROC: 4A1HXFZ Monitoring of Products of Conception, Cardiac Rhythm, External Approach (ICD-10-PCS; 2017-03-03)
PROC: 3E0R3CZ (ICD-10-PCS; 2017-03-03)
PROC: 00HU33Z Insertion of Infusion Device into Spinal Canal, Percutaneous Approach (ICD-10-PCS; 2017-03-03)
DX: O99.02 Anemia complicating childbirth (principal); Z3A.40 40 weeks gestation of pregnancy; Z37.0 Single live birth; O71.82 Other specified trauma to perineum and vulva
CPT/HCPCS: 36415; 85027; A9270-GY; J2405; J2590; J3010; J7120

== ENCOUNTER 2018-02-08 00:51 | Inpatient (IN) | payer BC, OTHER ==
[2018-02-08] MEDS ORDERED: Bupivacaine 0.75%/D5W 2 ML Amp INJECT ONE (01:30)
[2018-02-08] MEDS ORDERED: fentaNYL 100 MCG/2 ML SDV ITHECAL ONE (01:30)
[2018-02-08] MEDS ORDERED: Lidocaine 1% 30 ML SDV INJECT PRN (05:53)
[2018-02-08] MEDS ORDERED: Methylergonovine 0.2 MG/1 ML Amp IM PRN (05:53)
[2018-02-08] MEDS ORDERED: Misoprostol 400 MCG (4 X 100 MCG TAB) RECTAL PRN ×2 (05:53→12:14)
[2018-02-08] MEDS ORDERED: Lactated Ringers 500 ML IV ONE (05:53)
[2018-02-08] MEDS ORDERED: Ondansetron 4 MG/2 ML SDV IV PRN (05:53)
[2018-02-08] MEDS ORDERED: Carboprost Tromethamine 250 MCG/1 ML Amp IM PRN (05:53)
[2018-02-08] MEDS ORDERED: Sodium Chloride 0.9% 10 ML Syringe FLUSH PRN ×2 (05:53→12:14)
[2018-02-08] MEDS ORDERED: Tranexamic Acid 1,000 MG in Sodium Chloride 0.9% 100 ML IV PRN ×2 (05:53→12:14)
[2018-02-08] MEDS ORDERED: Oxytocin/Normal Saline 30 UNIT/500 ML BAG IV SCH (06:00)
--- NOTE | 2018-02-08 07:29 | HP ---
CHIEF COMPLAINT: Onset of contractions. HISTORY OF PRESENT ILLNESS: The patient is a 22-year-old, 2, para 1-0-0 - 1, currently at 39 and 0/7 weeks of her based on dating by last menstrual period confirmed with 21-week ultrasound, who came in film sound coordinator hours with her reporting onset of contractions somewhere between 11:00 and midnight that became more regular and had been every 7 to 8 minutes when she had left her house and about every 3 to 4 minutes when arriving on Labor and Delivery. No leakage of fluid or vaginal bleeding. Initially, no symptoms of preeclampsia. Good movement. Possibly some bloody show. Otherwise, no acute concerns. After being observed in the hospital for several hours, the contractions seemed to lessen in degree but are still occurring about every 2 minutes and are more intense when she is awake, but when she was asleep, she did not notice them. Baby movement has continued to be good. She is now starting to develop a headache. Blood pressures have been slightly higher than they should be, but she has no other symptoms of preeclampsia. OBSTETRICAL HISTORY: First delivery on 03/02/2017, 40 weeks 2 days' gestation female infant, delivered vaginally, named Xiao, weight 3175 g female. She had an intrathecal for anesthesia. She had a 7-hour labor and pushed for 20 minutes. No lacerations, delivered here in [place] by Dr. Navarrete. Blood type is O positive. Rubella immune. Syphilis serology nonreactive. Hepatitis B negative. HIV negative. Gonorrhea and Chlamydia negative. TSH normal. Hepatitis C negative. Wet prep negative. Glucose tolerance test 93. Quad screen was not performed. Group B strep test is negative. MEDICATION EXPOSURES IN : 1. Bactrim. 2. vitamins. 3. Iron. PAST MEDICAL HISTORY: Blood type O positive. Menarche at age 15 with monthly cycles and flow lasting 4 to 5 days. She has a history of multiple tattoos. She has ear piercings. No IV drug use. No blood transfusions. FAMILY HISTORY: Mother with an arrhythmia and treated with ablation for tachycardia. Father, no known diseases. Sister, no known diseases. Maternal grandmother with COPD and is a smoker. Maternal grandfather had a stroke. Paternal grandmother has a coronary artery disease and needed a CABG. Paternal grandfather had no known diseases. Family history is negative for anesthesia problems, cystic fibrosis, seizures, bleeding problems, clotting disorders, defects, multiples, labor. SOCIAL HISTORY: The patient is to [place]. She does not use any tobacco, and is working as a MANAGER OF SCHOOL in [employer]. , Suresh, is a sheet metal journeyman for [employer]. They have their daughter Xiao together. He has 1 child from a previous relationship. MEDICATIONS: The patient admits to not regularly taking her vitamins or iron. ALLERGIES: No known drug allergies. REVIEW OF SYSTEMS: As per the history of present illness. No fever or chills. No chest pain or shortness of breath. No diarrhea or constipation. No nausea or vomiting. Headache just started to develop while being here in the hospital. OBJECTIVE: General: Pleasant, healthy-appearing female, in no acute distress. Vital Signs: Initial blood pressure was 139/86, recheck 132/79. As the night progressed, she went up to 140/69 and 144/73. Afebrile with a temperature of 97.4, pulse of 66, respiratory rate normal and nonlabored. HEENT: Grossly unremarkable. Heart: Regular without pathological murmur. She does have a bit of a flow murmur consistent with . Lungs: Clear to auscultation bilaterally. Abdomen: Soft. Fundal height appropriate for gestational age. monitoring strip currently shows baseline heart rate of 130 beats per minute with moderate aqko-[id number] variability and accelerations noted. Contractions occurring every 2 to 3 minutes. Cervix is 4 cm dilated, 85% effaced, and -2 station. Bulging bag of water was intact and ruptured with AmniHook with return of clear fluid. Extremities: Trace edema bilaterally. Neurological: Reflexes are 1+ and equal. No clonus. No focal deficits. Skin: No obvious lesions. ASSESSMENT: 1. A 39 and 0/7 weeks' intrauterine in latent labor. 2. Elevated blood pressures, likely developing gestational hypertension. 3. Lives remote from the hospital with approximately 1-hour distance for driving. 4. 2, para 1-0-0-1. 5. Anemia of with inadequate iron supplementation. 6. Rubella nonimmune. 7. Blood type O positive. 8. Group B streptococcus negative. PLAN: Hopefully, the AROM will allow her labor to progress nicely with a natural process. We will augment with Pitocin if needed. She can have an intrathecal when necessary. We will add the [facility] labs to the blood already drawn, and a urine sample was collected prior to the artificial rupture. [facility] /[id number] MTDD
[2018-02-08] MEDS ORDERED: Bupivacaine 0.75%/D5W 2 ML Amp ONE (08:06)
[2018-02-08] MEDS ORDERED: fentaNYL 100 MCG/2 ML SDV ONE (08:07)
[2018-02-08] MEDS: Lactated Ringers 1,000 ML IV SCH ×2 (08:26→11:40)
--- NOTE | 2018-02-08 08:34 | PCM.SN ---
- Free Text/Narrative Note: Intrathecal. Sitting position, sterile prep and drape, 1% lidocaine w bicarb for skinwheal to L2 L3 interspace, introducer, 24 ga pencan x1. Pos CSF, neg heme, neg parasthesia. 0.4 ml pf NS, 20 mcf pf Sufenta, 30 mcg pf fentanyl and 6 mg of 0.75% pf Bupivacine injected after CSF aspiration. Pt to L lateral position. Procedure time 0805 to 0840
[2018-02-08] MEDS ORDERED: Famotidine 20 MG Tab PO PRN (12:14)
[2018-02-08] MEDS ORDERED: Measles, Mumps & Rubella Vaccine 0.5 ML SDV SUBCUT ONE (12:14)
[2018-02-08] MEDS ORDERED: Simethicone 80 MG Tab.Chew PO PRN (12:14)
[2018-02-08] MEDS ORDERED: Benzocaine/Menthol 20%-0.5% Spray 56 GM Canister TOP PRN (12:14)
[2018-02-08] MEDS ORDERED: Famotidine 20 MG/2 ML SDV IVPUSH PRN (12:58)
[2018-02-08] MEDS: Docusate Sodium 100 MG Cap PO PRN ×2 (13:15→20:52)
[2018-02-08] MEDS: Ibuprofen 800 MG Tab PO PRN ×2 (13:15→20:51)
[2018-02-08] MEDS: Ferrous Sulfate 325 MG Tab PO SCH (20:51)
[2018-02-08] MEDS: Acetaminophen 325 MG Tab PO PRN (23:54)
[2018-02-09] MEDS: Ibuprofen 800 MG Tab PO PRN ×3 (05:20→21:57)
[2018-02-09] MEDS ORDERED: Prenatal Multivitamin with Calcium/Folic Acid/Iron Tab PO SCH (09:00)
[2018-02-09] MEDS: Acetaminophen 325 MG Tab PO PRN (09:43)
[2018-02-09] MEDS: Ferrous Sulfate 325 MG Tab PO SCH ×2 (09:43→18:23)
--- NOTE | 2018-02-09 09:44 | PN ---
DATE: 02/09/2018 day #1, status post uncomplicated vaginal delivery. SUBJECTIVE: The patient reports some lightheadedness when she gets out and excessive fatigue. Feels like she has been having more vaginal bleeding than average. However, nursing staff reports that she has only passed 2 clots, and the bleeding that they find on the Chux and pads is not excessive. She is voiding without difficulties, has not had a bowel movement. No fever or chills. No chest pain or shortness of breath. She has elected to bottle feed. No other specific concerns or complaints are noted this morning. OBJECTIVE: Vital Signs: Blood pressures ranging from 116/68 to 134/57; pulse 57, up to 63; respiratory rate 16 to 18; O2 saturations 99% to 100% on room air; and temperature is 98.1. Heart: Regular without any murmur. No signs of tachycardia. Lungs: Clear to auscultation bilaterally with good chest expansion. Abdomen: Soft without masses. Fundus is firm and below the umbilicus. Extremities: No edema, erythema, or tenderness. LABORATORY DATA: Initial hemoglobin was 9.2, currently sitting at 8.0. Platelets were 216, now down to 178. The [facility] labs remarkable only for a lactate dehydrogenase of 263, otherwise negative; specifically, protein-creatinine ratio is 0.06. ASSESSMENT: 1. Status post spontaneous vaginal delivery, day #1, doing well. 2. Symptoms of possible blood loss anemia, yet to be determined if blood transfusion is indicated. 3. Anemia of and acute blood loss. 4. Elevated blood pressures, resolved. PLAN: Discussed with mother staying today in the hospital to see how she does with ambulation today; and if she is continuing to experience some lightheadedness, we may need to consider blood transfusion. Will also check orthostatic vitals. Anticipate hemoglobin to be rechecked in the morning. May need to bump this up to late night hours, so that we can initiate blood transfusion during the night if necessary. The patient was agreeable to this plan, and her questions were answered. [facility] /[id number] [place]
[2018-02-09] MEDS: Docusate Sodium 100 MG Cap PO PRN (10:08)
--- NOTE | 2018-02-09 12:17 | DEL ---
DATE: 02/08/2018 PREPROCEDURE DIAGNOSES: 1. A 39 and 1/7 weeks' intrauterine . 2. 2, para 1-0-0-1. 3. Anemia of . 4. History of urinary tract infection in the second trimester. 5. Elevated blood pressures. 6. Latent stage labor. 7. Resident from other hospital. 8. Rubella nonimmune, blood type O positive, and group B streptococcus negative. POSTPROCEDURE DIAGNOSES: 1. A 39 and 1/7 weeks' intrauterine . 2. 2, para 1-0-0-1. 3. Anemia of . 4. History of urinary tract infection in the second trimester. 5. Elevated blood pressures. 6. Latent stage labor. 7. Resident from other hospital. 8. Rubella nonimmune, blood type O positive, and group B streptococcus negative. 9. Status post delivery of a viable female plus repair of bilateral labial lacerations. BRIEF HISTORY: A 22-year-old female with the above-listed diagnoses presented to the hospital with onset of regular contractions that were increasing in force and frequency. However, after resting and receiving IV fluids, they had spaced out. When she woke up, they became stronger again. Her cervix essentially was unchanged, but given the elevated blood pressures and the need for evaluation for preeclampsia and gestational hypertension along with being remote from hospital, a decision was made to proceed with artificial rupture of membranes which was performed without complication and led to a spontaneous labor. After about a grand total of 5 hours of labor, she went on to delivery as outlined below. DETAILS: With the patient in dorsal lithotomy position, she delivered a viable female infant in the OA position over intact perineum. With the 's head delivered, loose nuchal cord was reduced bluntly. Remainder of the delivered thereafter. The baby was dried, stimulated, and suctioning of the nose and mouth performed; and baby was placed up on the mother's abdomen. After a delay, 3-vessel umbilical cord was doubly clamped and then cut; and placenta was delivered by gentle cord traction and concomitant uterine massage. Nurse then collected cord blood sample. The uterus was firm. Labia and vagina were inspected; and there were 2 anterior labial lacerations which were repaired in a simple running fashion with 4-0 undyed Vicryl. Perineal superficial tear noted and hemostatic. No stitches were required. Mother tolerated the procedure well. ESTIMATED BLOOD LOSS: 200 mL. FINDINGS: Viable female infant. scores of 9 and 9. Weight 3935 g, 8 pounds 11 ounces. COMPLICATIONS: None. DISPOSITION: Mother and baby to remain in the delivery room to initiate at this time. [facility] /[id number] MTDD
[2018-02-10 07:48] VITALS: BP 111/72
== END 2018-02-10 09:15 | disposition home or self-care (01) | DRG 560 ==
LOC: DL.OBCHECK 00:51 → DL.OB 01:29 → OBSVTOIN 11:31 → DL.OB 11:31
PROVIDERS: ADMIT Family Medicine; ATTEND Family Medicine
PROC: 00HU33Z Insertion of Infusion Device into Spinal Canal, Percutaneous Approach (ICD-10-PCS; 2018-02-08)
PROC: 3E0R3BZ Introduction of Anesthetic Agent into Spinal Canal, Percutaneous Approach (ICD-10-PCS; 2018-02-08)
PROC: 10907ZC Drainage of Amniotic Fluid, Therapeutic from Products of Conception, Via Natural or Artificial Opening (ICD-10-PCS; principal; 2018-02-09)
PROC: 0UQMXZZ Repair Vulva, External Approach (ICD-10-PCS; principal; 2018-02-09)
PROC: 10E0XZZ Delivery of Products of Conception, External Approach (ICD-10-PCS; principal; 2018-02-09)
PROC: 6A550ZT Pheresis of Cord Blood Stem Cells, Single (ICD-10-PCS; principal; 2018-02-09)
DX: O13.4 Gestational [pregnancy-induced] hypertension without significant proteinuria, complicating childbirth (principal); Z3A.39 39 weeks gestation of pregnancy; Z37.0 Single live birth; O90.81 Anemia of the puerperium; D62 Acute posthemorrhagic anemia; O70.0 First degree perineal laceration during delivery; O69.81X0 Labor and delivery complicated by cord around neck, without compression, not applicable or unspecified
CPT/HCPCS: 36415; 59025; 59409; 82570; 83615; 84156; 84450; 84460; 84520; 84550; 85018; 85027; A9270-GY; J2405; J2590; J3010; J3490; J7120

== ENCOUNTER 2019-04-16 08:08 | Inpatient (IN) | payer BC ==
[~2019-04-16 08:08] MED LIST: Acetaminophen 325 MG Tab PO PRN; Carboprost Tromethamine 250 MCG/1 ML Amp IM PRN; Lactated Ringers 1,000 ML IV SCH; Lidocaine 1% 30 ML SDV INJECT PRN; Methylergonovine 0.2 MG/1 ML Amp IM PRN; Misoprostol 25 MCG (1/4 of 100 MCG) Tab PO PRN; Misoprostol 400 MCG (4 X 100 MCG TAB) RECTAL PRN; Ondansetron 4 MG/2 ML SDV IV PRN; Oxytocin/Normal Saline 30 UNIT/500 ML BAG IV SCH; Sodium Chloride 0.9% 10 ML Syringe FLUSH PRN; Tranexamic Acid 1,000 MG in Sodium Chloride 0.9% 100 ML IV PRN
[2019-04-16] MEDS: Lactated Ringers 1,000 ML IV SCH ×3 (09:32→20:31)
[2019-04-16] MEDS: Oxytocin/Normal Saline 30 UNIT/500 ML BAG IV SCH ×2 (09:33→23:40)
--- NOTE | 2019-04-16 16:17 | PN ---
DATE: 04/16/2019 TIME: 15:30. SUBJECTIVE: Continues to have some contractions, some stronger than others and they will be regular and then space out again. She is noticing some increased pelvic pressure but nothing significant and agreeable to artificial rupture of membranes at this time and reports that with her prior deliveries, things usually do go faster after her bag of water breaks. OBJECTIVE: Vital Signs: Blood pressure is 136/78, she is afebrile. PELVIC: Cervix remains about 3.5 to 4 cm dilated, it is about 75% thinned out now. Anterior position and bulging bag of water is intact. The bag is ruptured with Amnio Hook and we have good return of clear fluid. vertex is well applied against the cervix. ASSESSMENT: 1. 39-0/7 weeks' intrauterine , now status post artificial rupture of membranes. 2. History of precipitous deliveries. 3. Residence remote from hospital. 4. History of urinary tract infection, bacterial vaginosis during the . 5. Anemia of . 6. Gestational hypertension prior . 7. History of threatened labor this . 8. Blood type O-positive, group B strep negative, and rubella equivocal. PLAN: Continue Pitocin for induction and anticipate that contraction pattern will become more regular and contractions will get stronger leading to actual labor and cervical change and will be anticipating vaginal delivery. Patient will likely have intrathecal when she needs it for better pain control. Her questions have been answered. [facility] /[id number]
[2019-04-16] MEDS ORDERED: fentaNYL 100 MCG/2 ML SDV ONE ×2 (16:23→21:37)
[2019-04-16] MEDS ORDERED: Sodium Bicarbonate 4.2% 2.5 MEQ/5 ML SDV ONE ×2 (16:24→21:38)
[2019-04-16] MEDS ORDERED: EPINEPHrine 1 MG/1 ML Amp ONE ×2 (16:24→21:38)
--- NOTE | 2019-04-16 16:48 | PCM.SN ---
- Free Text/Narrative Note: Intrathecal. Sitting position, sterile prep and drape. 1% lidocaine w bicarb for skinwheal to L2 L3 interspace. Introducer, 24 ga pencan x 1. Pos CSF, neg heme, neg parasthesia. 0.1 ml pf 1:1000 epi, 0.4 ml pf NS, 20 mcg pf Sufenta, 30 mcg pf Fentanyl and 6 mg of 0.75% pf Bupivacaine injected after CSF aspiration. Pt to L lateral position. Procedure time 1625 to 1655
[2019-04-16] MEDS ORDERED: Benzocaine/Menthol 20%-0.5% Spray 56 GM Canister TOP PRN (22:06)
[2019-04-16] MEDS ORDERED: Simethicone 80 MG Tab.Chew PO PRN (22:06)
[2019-04-16] MEDS: Ibuprofen 800 MG Tab PO PRN (22:59)
[2019-04-17] MEDS: Acetaminophen 325 MG Tab PO PRN ×3 (01:28→20:53)
--- NOTE | 2019-04-17 04:19 | DEL ---
DATE: 04/16/2019 PREPROCEDURE DIAGNOSES: 1. 39 and 0/7 weeks intrauterine based on last menstrual period. 2. 3, para 2-0-0-2. 3. History of precipitous delivery. 4. Residence remote from hospital. 5. Third trimester urinary tract infection. 6. Anemia of . 7. History of related hypertension, prior . 8. History of bacterial vaginosis. 9. Blood type O positive, group B strep negative, rubella equivocal. 10.History of threatened labor, this . POSTPROCEDURE DIAGNOSES: 1. 39 and 0/7 weeks intrauterine based on last menstrual period. 2. 3, now para 3-0-0-3. 3. History of precipitous delivery. 4. Residence remote from hospital. 5. Third trimester urinary tract infection. 6. Anemia of . 7. History of related hypertension, prior . 8. History of bacterial vaginosis. 9. Blood type O positive, group B strep negative, rubella equivocal. 10.History of threatened labor this . 11.20 to 30-second shoulder dystocia. 12.Delivery of a macrosomic female infant. BRIEF HISTORY: A 23-year-old female brought into the hospital this morning for planned induction of labor because of history of fast deliveries, delivering remote from hospital. Upon arrival, patient was 3.5 cm, 50% effaced, and Pitocin was started. After several hours, she is still making minimal to no cervical change and artificial rupture of membranes was performed, after which time she proceeded into more active labor. After about 5 total hours of active labor, she only pushed for about 5 minutes and had a vaginal delivery as detailed below. With the patient in dorsal lithotomy position, she delivered a viable female over intact perineum. The baby's head was delivered and the remainder of the infant was not readily coming thereafter, so she was placed in Spencer position, and I entered the vagina with my right hand, placed my hand upon the baby's back and rotated the shoulder underneath the pubic bone while I was also calling for the nurses to apply suprapubic pressure. Anterior shoulder then delivered followed thereafter by the baby. Baby initially appeared a little stunned, so she was dried, stimulated. Nose and mouth were bulb suctioned and 3- vessel umbilical cord was doubly clamped and cut. The baby taken to the warmer for further evaluation. Cord blood sample was then obtained and then placenta delivered by gentle cord traction and concomitant uterine massage. The patient had some brisk bleeding thereafter. So, uterine massage was performed along with continuing high rate of Pitocin and bleeding slowed nicely. The labia and vagina were inspected and there were minor anterior and posterior lacerations that did not require any repair and were hemostatic. ESTIMATED BLOOD LOSS: 400 mL. COMPLICATIONS: Shoulder dystocia lasted only 20 to 30 seconds and relieved well with Spencer' positioning and entering the vagina. FINDINGS: Viable female , scores of 9 and 9, weight 4095 g, 9 pounds 0 ounces. DISPOSITION: Mother and baby to stay in the room at this time to initiate some bonding. [facility] /[id number]
[2019-04-17] MEDS ORDERED: Measles, Mumps & Rubella Vaccine 0.5 ML SDV SUBCUT ONE (08:01)
[2019-04-17] MEDS: Ferrous Sulfate 325 MG Tab PO SCH (08:59)
[2019-04-17] MEDS: Ibuprofen 800 MG Tab PO PRN ×2 (08:59→17:06)
[2019-04-17] MEDS: Prenatal Multivitamin with Calcium/Folic Acid/Iron Tab PO SCH (08:59)
[2019-04-17] MEDS: Docusate Sodium 100 MG Cap PO PRN ×2 (08:59→20:53)
--- NOTE | 2019-04-17 14:25 | PN ---
DATE: 04/17/2019 SUBJECTIVE: Post delivery day #1 and the patient is doing well. She has been ambulating and tolerating regular diet, voiding without difficulties, passing flatus without problems, bottle-feeding her baby. Reports that all has been going well and denies any acute concerns. OBJECTIVE: Vital Signs: Temperature is 98.6, pulse 88, blood pressure 130/66, and respiratory rate of 16. Heart: Regular without murmur. Lungs: Clear to auscultation bilaterally. Abdomen: Soft, nontender. Positive bowel sounds. Fundus firm and at the umbilicus. Extremities: No edema, erythema, or tenderness noted. LABORATORY DATA: Hemoglobin down to 9.3 and platelets down to 175. ASSESSMENT: 1. Post vaginal delivery day #1. 2. 3, now para 3-0-0-3. 3. Anemia of and . 4. Rubella equivocal. PLAN: Continue routine cares. Patient will be given her MMR vaccination, and IV can now be removed. Anticipate discharge home tomorrow as long as all continues to go well. Her questions have been answered. [facility] /[id number]
[2019-04-18] MEDS: Ibuprofen 800 MG Tab PO PRN (07:29)
[2019-04-18] MEDS: Prenatal Multivitamin with Calcium/Folic Acid/Iron Tab PO SCH ×2 (07:29→12:20)
[2019-04-18] MEDS: Acetaminophen 325 MG Tab PO PRN (07:29)
[2019-04-18] MEDS: Docusate Sodium 100 MG Cap PO PRN (07:29)
[2019-04-18] MEDS: Ferrous Sulfate 325 MG Tab PO SCH (07:29)
[2019-04-18] MEDS ORDERED: fentaNYL 100 MCG/2 ML SDV ITHECAL ONE (08:49)
[2019-04-18] MEDS ORDERED: Sodium Bicarbonate 4.2% 2.5 MEQ/5 ML SDV ONE (08:49)
[2019-04-18] MEDS ORDERED: EPINEPHrine 1 MG/1 ML Amp ONE (08:49)
[2019-04-18 12:25] VITALS: BP 113/63; PULSE 72
--- NOTE | 2019-04-23 08:04 | DISCH ---
ADMITTING DIAGNOSES: 1. 39 and 0/7 weeks by last menstrual period. 2. 3, para 2-0-0-2. 3. History of precipitous delivery. 4. Residence remote from hospital. 5. Third trimester urinary tract infection. 6. Anemia of . 7. History of gestational hypertension and prior pregnancies. 8. History of bacterial vaginosis. 9. Blood type O positive, group B Strep negative, rubella equivocal. 10.History of threatened labor this . DISCHARGE DIAGNOSES: 1. 39 and 0/7 weeks by last menstrual period. 2. 3, now para 3-0-0-3. 3. History of precipitous delivery. 4. Residence remote from hospital. 5. Third trimester urinary tract infection. 6. Anemia of . 7. History of gestational hypertension and prior pregnancies. 8. History of bacterial vaginosis. 9. Blood type O positive, group B Strep negative, rubella equivocal. 10.History of threatened labor this . 11.Status post spontaneous vaginal delivery complicated by 20-second shoulder dystocia. 12.Delivery of macrosomic infant. 13.Anemia of and blood loss. BRIEF HISTORY: A 23-year-old female with the above-listed diagnoses, was brought into the hospital for elective induction of labor because of her history of fast deliveries and living over an hour and a half away from hospital with potential for bad weather, complicating road conditions. She was initiated on Pitocin, and then when appropriate, artificial rupture of membranes performed. She also had an intrathecal provided for pain management that essentially had worn off prior to actual delivery and we were about to give her, her second intrathecal when she delivered quickly. See progress notes and nursing care notes for full details. HOSPITAL COURSE: Good. Induction of labor and delivery went well. The 20- second shoulder dystocia was relieved by Spencer position and entering the vagina to turn the baby's shoulder. The baby did well with 9 and 9 score. Delivery note can be reviewed for those full details. Since delivery, she has been ambulating, tolerating regular diet, and voiding without difficulties, passing flatus. No chest pain or shortness of breath. No headaches, blurry vision, chest pain. No edema developing of the lower extremities and overall feeling well and wanting to go home. DISCHARGE CONDITION: Good. PHYSICAL EXAMINATION: Vital Signs: Her temperature is 97.9, pulse 72, blood pressure 113/63, respiratory rate of 16, and O2 saturations 100% on room air. Heart: Regular without murmur. Lungs: Clear to auscultation bilaterally. Abdomen: Soft and nontender. Fundus is firm and 2 fingers below the umbilicus. Extremities: Trace edema. No erythema or tenderness noted. LABORATORY DATA: Admission hemoglobin was 10.8, discharge of 9.3; platelets went from 185 down to 175. The patient had been in active labor for about 5 hours and delivered within 5 minutes of being complete. DISPOSITION: Home with family. MEDICATIONS: Ibuprofen 800 mg every 8 hours as needed for pain, Tylenol 650 mg every 6 hours as needed for pain, iron 325 mg twice daily for 1 month, Colace 100 mg twice daily as needed for constipation, and vitamin 1 daily. The patient was also administered MMR prior to discharge. FOLLOWUP: She will see me in the office for her 6-week exam, sooner if any problems or concerns arise. I will also be able to check on her on the 2- D and 2-week well-child visits since I will be seeing her daughter. INSTRUCTIONS: Routine post vaginal delivery instructions were provided including to come in if she has any problems with foul- smelling drainage, discharge, fever, chills, or other concerns. No concerns for depression at this time. [facility] /[id number]
== END 2019-04-18 08:50 | disposition home or self-care (01) | DRG 560 ==
LOC: DL.OBCHECK 08:08 → DL.OB 08:28 → OBSVTOIN 21:52 → DL.OB 04-18 11:03
PROVIDERS: ADMIT Family Medicine; ATTEND Family Medicine
PROC: 10E0XZZ Delivery of Products of Conception, External Approach (ICD-10-PCS; principal; 2019-04-16)
PROC: 10907ZC Drainage of Amniotic Fluid, Therapeutic from Products of Conception, Via Natural or Artificial Opening (ICD-10-PCS; 2019-04-16)
PROC: 3E033VJ Introduction of Other Hormone into Peripheral Vein, Percutaneous Approach (ICD-10-PCS; 2019-04-16)
PROC: 3E0R3BZ Introduction of Anesthetic Agent into Spinal Canal, Percutaneous Approach (ICD-10-PCS; 2019-04-16)
PROC: 3E0234Z Introduction of Serum, Toxoid and Vaccine into Muscle, Percutaneous Approach (ICD-10-PCS; 2019-04-16)
DX: O99.02 Anemia complicating childbirth (principal); O13.4 Gestational [pregnancy-induced] hypertension without significant proteinuria, complicating childbirth; Z3A.39 39 weeks gestation of pregnancy; Z37.0 Single live birth; Z23 Encounter for immunization
CPT/HCPCS: 36415; 59409; 85027; 90471; 90707; A9270-GY; J0171; J2405; J2590; J3010; J7120

== ENCOUNTER 2020-03-05 15:44 | Inpatient (IN) | payer BC, OTHER ==
[2020-03-05] MEDS ORDERED: Methylergonovine 0.2 MG/1 ML Amp IM PRN (15:45)
[2020-03-05] MEDS ORDERED: Lactated Ringers 1,000 ML IV SCH (15:45)
[2020-03-05] MEDS ORDERED: Tranexamic Acid 1,000 MG in Sodium Chloride 0.9% 100 ML IV PRN (15:45)
[2020-03-05] MEDS ORDERED: Acetaminophen 325 MG Tab PO PRN (15:45)
[2020-03-05] MEDS ORDERED: Carboprost Tromethamine 250 MCG/1 ML Amp IM PRN (15:45)
[2020-03-05] MEDS ORDERED: Oxytocin/Normal Saline 30 UNIT/500 ML BAG IV SCH (15:45)
[2020-03-05] MEDS ORDERED: Lidocaine 1% 30 ML SDV INJECT PRN (15:45)
[2020-03-05] MEDS ORDERED: Sodium Chloride 0.9% 10 ML Syringe FLUSH PRN (15:45)
[2020-03-05] MEDS ORDERED: Lactated Ringers 1,000 ML IV ONE (15:45)
[2020-03-05] MEDS ORDERED: Misoprostol 400 MCG (4 X 100 MCG TAB) RECTAL PRN (15:45)
[2020-03-05] MEDS ORDERED: Ondansetron 4 MG/2 ML SDV IVPUSH PRN ×2 (15:45→15:49)
[2020-03-05] MEDS ORDERED: fentaNYL 100 MCG/2 ML SDV IVPUSH PRN (15:45)
[2020-03-05] MEDS ORDERED: ePHEDrine 50 MG/ML SDV IVPUSH PRN (15:49)
[2020-03-05] MEDS ORDERED: Naloxone 2 MG/2 ML Syringe IVPUSH PRN (15:49)
[2020-03-05] MEDS ORDERED: Promethazine 25 MG/ML SDV IM PRN (15:49)
[2020-03-05] MEDS ORDERED: Penicillin G Potassium 5 MILLUNITS in Sodium Chloride 0.9% 100 ML IV ONE (17:00)
[2020-03-05] MEDS ORDERED: fentaNYL 100 MCG/2 ML SDV ONE (20:09)
[2020-03-05] MEDS ORDERED: EPINEPHrine 1 MG/1 ML Amp ONE ×2 (20:09→20:15)
[2020-03-05] MEDS ORDERED: fentaNYL 100 MCG/2 ML SDV ITHECAL ONE (20:15)
--- NOTE | 2020-03-05 20:52 | PCM.PRNOTE ---
- Free Text/Narrative Note: Requested to provide analgesia to full term patient in severe pain. Upon entering the room, patient is sitting on edge of bed complaining of severe abdominal/pelvic pain and discomfort. Procedure was discussed with patient including adverse outcomes and expectations. Pt consented to analgesia, SAB/IT. Pt placed into a proper sitting position. Landmarks for SAB/IT were identified and marked. Hands were washed and appropriate PPE was applied. Back was prepped with betadine x3. A sterile, transparent, fenestrated drape was applied. Excess betadine was removed. Using 3 mL of a 1% lidocaine solution, a skin wheel was placed at the L2/L3 interspace. A 24 ga (4 inch) Pencan spinal needle was inserted until positive for CSF. Negative for heme or paresthesias. Injected fentanyl 30 mcg, sufentanil 25 mcg, and 7.5 mg of a 0.75% bupivacaine solution with an epi wash. Pt was placed left lateral position for approximately 20 minutes. There were zero complications or adverse outcomes. Will continue to monitor. Procedure Date & Time: 03-05-20
[2020-03-05] MEDS ORDERED: Penicillin G Potassium 3 MILLUNITS in Sodium Chloride 0.9% 100 ML IV SCH (21:00)
[2020-03-05] MEDS ORDERED: Docusate Sodium 100 MG Cap PO PRN (21:38)
[2020-03-05] MEDS ORDERED: Simethicone 80 MG Tab.Chew PO PRN (21:38)
[2020-03-05] MEDS ORDERED: Benzocaine/Menthol 20%-0.5% Spray 56 GM Canister TOP PRN (21:38)
[2020-03-05] MEDS ORDERED: Famotidine 20 MG/2 ML SDV IVPUSH ONE (22:31)
[2020-03-06] MEDS: Ibuprofen 800 MG Tab PO PRN ×3 (02:00→17:51)
--- NOTE | 2020-03-06 03:49 | DEL ---
DATE: 03/05/2020 PREPROCEDURE DIAGNOSES: 1. 38-2/7 weeks' intrauterine based on 9-week ultrasound. 2. 4, para 3-0-0-3. 3. Blood type O positive, rubella immune, and group B Streptococcus positive. 4. History of gestational hypertension, prior . 5. Anemia of . 6. History of shoulder dystocia. 7. History of macrosomic infant. 8. History of precipitous delivery. 9. Residence remote from hospital. POSTPROCEDURE DIAGNOSES: 1. 38-2/7 weeks' intrauterine based on 9-week ultrasound. 2. 4, now para 4-0-0-4. 3. Status post spontaneous vaginal delivery without complications under intrathecal anesthesia. 4. Blood type O positive, rubella immune, and group B Streptococcus positive. 5. History of gestational hypertension, prior . 6. Anemia of . 7. History of shoulder dystocia. 8. History of macrosomic infant. 9. History of precipitous delivery. 10.Residence remote from hospital. 11. Post spontaneous vaginal delivery. BRIEF HISTORY: A 24-year-old female admitted to the hospital after being seen in the office earlier today with contractions every 5 to 7 minutes and having some vaginal bleeding more than expected for stripping of the membranes yesterday. She was allowed to progress through labor on her own, and when she reached 7 cm dilated, had an intrathecal placed, and then went on to deliver shortly thereafter with details as below. The patient's care was excellent. Risk factors as outlined above. We had discussed potential for induction of labor at 39 weeks' gestation due to her complications. However, she thankfully presented in labor. PROCEDURE DETAILS: The patient in dorsal lithotomy position, delivered a viable male over intact perineum in the OA position. Baby was dried and stimulated and placed on mother's abdomen and then bulb suctioned as needed. After a delay, 3-vessel umbilical cord was doubly clamped and cut, and cord blood sample obtained, and placenta delivered by gentle cord traction and concomitant uterine massage. Labia and vagina inspected. She had some superficial abrasions posteriorly and anteriorly, none of which required any stitches. Posterior abrasion could be hemostatic with just applying pressure. Note, bag of water was intact while the patient was pushing until the last 1 to 2 contractions, at which time amniotomy was performed with the toothed pickups, so GBS exposure is essentially minutes, and mother had 2 doses of penicillin. ESTIMATED BLOOD LOSS: 200 mL. COMPLICATIONS: None. DISPOSITION: Mother and baby to stay in the delivery room for skin to skin. FINDINGS: Viable male infant. scores of 9 and 9. Weight and first set of vitals pending. [facility] /[id number] [place]
[2020-03-06] MEDS: Prenatal Multivitamin with Calcium/Folic Acid/Iron Tab PO SCH (09:54)
[2020-03-06] MEDS: Ferrous Sulfate 325 MG Tab PO SCH (09:55)
--- NOTE | 2020-03-06 14:14 | PN ---
DATE: 03/06/2020 SUBJECTIVE: Eden is doing well today, day #1, status post uncomplicated spontaneous vaginal delivery. She has been ambulating, tolerating regular diet, voiding without difficulties, passing flatus. Bleeding has been well controlled and she verbalizes no concerns. Bottle feeding her baby, all is going well, and anticipating discharge home tomorrow. OBJECTIVE: Vital Signs: Temperature is 98.5, blood pressure 128/61, respiratory rate of 16. This morning's vitals are not yet in the computer. Heart: Regular without murmur. Lungs: Clear to auscultation bilaterally. Abdomen: Soft, nontender. Fundus is firm and below the umbilicus. Extremities: No edema, erythema, or tenderness noted. ASSESSMENT: 1. Status post spontaneous vaginal delivery, doing well. 2. 4, now para 4-0-0-4. 3. Blood type O positive, rubella immune, and group B Strep positive. 4. History of gestational hypertension in prior pregnancies. 5. Anemia of . PLAN: Anticipate continued normal cares and discharge home tomorrow. Questions were answered. All is well. [facility] /[id number]
[2020-03-07] MEDS ORDERED: Zolpidem 5 MG Tab PO PRN (00:53)
[2020-03-07] MEDS: Ibuprofen 800 MG Tab PO PRN ×2 (01:12→08:42)
[2020-03-07] MEDS: Ferrous Sulfate 325 MG Tab PO SCH (08:42)
[2020-03-07] MEDS: Prenatal Multivitamin with Calcium/Folic Acid/Iron Tab PO SCH (08:42)
[2020-03-07 08:51] VITALS: BP 122/66; PULSE 59
--- NOTE | 2020-03-07 22:24 | DISCH ---
ADMITTING DIAGNOSES: 1. 38-2/7 weeks' gestation based on 9-week ultrasound. 2. 4, para 3-0-0-3. 3. Blood type O positive, rubella immune, group B Streptococcus positive. 4. Anemia of . 5. History of gestational hypertension, prior . 6. History of shoulder dystocia, prior delivery. 7. History of macrosomic , prior . 8. History of precipitous deliveries, prior pregnancies. 9. Residence remote from hospital. DISCHARGE DIAGNOSES: 1. 38-2/7 weeks' gestation based on 9-week ultrasound. 2. 4, now para 4-0-0-4. 3. Status post uncomplicated spontaneous vaginal delivery with intrathecal anesthesia. 4. Blood type O positive, rubella immune, group B Streptococcus positive. 5. Anemia of . 6. History of gestational hypertension, prior . 7. History of shoulder dystocia, prior delivery. 8. History of macrosomic infant, prior . 9. History of precipitous deliveries, prior pregnancies. 10.Residence remote from hospital. PROCEDURES PERFORMED: Intrathecal artificial rupture of membranes and spontaneous vaginal delivery. BRIEF HISTORY: A 24-year-old female who presented to the clinic with symptoms and signs of latent stage labor and cervical change from the day prior. She was sent over to the hospital for further evaluation and found to have a hemoglobin of 10.6, platelets of 196. membrane rupture test was negative and rapid COVID test was negative. She had increased force and frequency of her contractions and was admitted before labor. Received at least 2 doses of penicillin prior to delivery. Had intrathecal for pain management. Artificial rupture of membranes was performed during her last 2 contractions and exposure of GBS to the baby minimal. Delivery was uncomplicated and she had some superficial abrasions that did not require any stitches. Please see admission history and physical for full additional details. HOSPITAL COURSE: Has been good. Since delivery, ambulating, tolerating regular diet, voiding, stooling without complications. No chest pain, shortness of breath, right upper quadrant pain, headaches. Vital signs have been stable. Bleeding has been well controlled. She is bottle feeding her baby and there have been no signs or symptoms of depression. The patient feels ready to be discharged today. DISCHARGE CONDITION: Good. PHYSICAL EXAMINATION: Vital Signs: Temperature is 97.7, pulse 71, blood pressure 118/60, respiratory rate of 18, O2 saturations 99% on room air. Heart: Regular without murmur. Lungs: Clear to auscultation bilaterally. Abdomen: Soft and nontender. Fundus is firm and below the umbilicus. Extremities: No edema, erythema, or tenderness noted. DISPOSITION: Home with family. MEDICATIONS: Iron 325 mg twice daily, vitamin C 500 mg twice daily, ibuprofen 800 mg 3 times daily as needed for pain, Tylenol 650 mg 3 times daily as needed for pain, vitamin, continue 1 tablet daily, Colace 100 mg twice daily as needed for constipation. FOLLOWUP: She will have a 6-week visit with myself. I will be able to check on her status when she brings her baby in on Tuesday and for the 2-week visit so that she has at least 2 checks between now and her for any problems that may develop. INSTRUCTIONS: Routine post vaginal delivery instructions provided and all of her questions answered. [facility] /[id number]
== END 2020-03-07 10:11 | disposition home or self-care (01) | DRG 560 ==
LOC: DL.OB 15:44 → OBSVTOIN 21:11 → DL.MS 03-06 11:08
PROVIDERS: ADMIT Family Medicine; ATTEND Family Medicine
PROC: 10E0XZZ Delivery of Products of Conception, External Approach (ICD-10-PCS; principal; 2020-03-05)
PROC: 10907ZC Drainage of Amniotic Fluid, Therapeutic from Products of Conception, Via Natural or Artificial Opening (ICD-10-PCS; 2020-03-05)
PROC: 3E0R3BZ Introduction of Anesthetic Agent into Spinal Canal, Percutaneous Approach (ICD-10-PCS; 2020-03-05)
PROC: 00HU33Z Insertion of Infusion Device into Spinal Canal, Percutaneous Approach (ICD-10-PCS; 2020-03-05)
DX: O99.02 Anemia complicating childbirth (principal); D64.9 Anemia, unspecified; Z20.828 Contact with and (suspected) exposure to other viral communicable diseases; Z37.0 Single live birth; Z3A.38 38 weeks gestation of pregnancy
CPT/HCPCS: 01967; 36415; 59409; 84112; 85027; A9270-GY; J0171; J2405; J2540; J2590; J3010; J3490; J7050; J7120; U0002